=== PATIENT | male | born 1990 | race Caucasian/White ===

== ENCOUNTER 2016-10-20 00:03 | Emergency (ER) | payer SELFPAY ==
[~2016-10-20] VITALS: Ht 185.4 cm; Wt 90.0 kg
[2016-10-20 00:07] VITALS: Ht 185.4 cm; Wt 90.0 kg
[2016-10-20] MEDS ORDERED: IBUPROFEN 800 MG TAB PO ONE (03:00)
[2016-10-20] MEDS ORDERED: DIAZEPAM 2 MG TAB PO ONE (03:00)
[2016-10-20] MEDS ORDERED: CYCL-319 PO (03:26)
[2016-10-20] MEDS ORDERED: IBUP800T25 PO (03:26)
[2016-10-20 03:40] VITALS: BP 131/70; PULSE 67; RESP 16; TEMP 98
--- NOTE | 2016-10-20 05:49 | ERD ---
ER Documentation Chief Complaint Date/Time DATE: 10/20/16 TIME: 05:43 Chief Complaint non radiating neck pain tonight while doing exercising today HPI 26-year-old male complaining of neck pain 1 day. Patient stated that he woke up at 2 AM the previous morning with the neck pain. Pain is constant, and sharp. He is unable to move his neck because the pain. He smoked large amount of marijuana trying to ease the pain, he did pass out after marijuana. But when he woke up the pain returned. Denies injuries. Denies fever or chills. Denies headaches. ROS All systems reviewed and are negative except as per history of present illness. Medications Home Meds Active Scripts Cyclobenzaprine Hcl* (Cyclobenzaprine Hcl*) 10 Mg Tablet, 10 MG PO TID, #15 TAB Prov:HAYLEY LAND. TIGHTENING MACHINE OPERATOR 10/20/16 Ibuprofen* (Motrin*) 800 Mg Tab, 800 MG PO Q8, #30 TAB Prov:HAYLEY LAND. TIGHTENING MACHINE OPERATOR 10/20/16 Allergies Allergies: Coded Allergies: No Known Allergy (Unverified , 10/20/16) PMhx/Soc Medical and Surgical Hx: pt denies Medical Hx, pt denies Surgical Hx Hx Alcohol Use: No Hx Substance Use: No Hx Tobacco Use: No Smoking Status: Unknown if ever smoked Physical Exam Vitals Vital Signs Date Time Temp Pulse Resp B/P Pulse Ox O2 Delivery O2 Flow Rate FiO2 10/20/16 03:40 98.0 67 16 131/70 99 Room Air 10/20/16 00:07 98.2 78 18 115/55 98 Physical Exam General impression: Well-developed, well-nourished, 26-year-old male, alert, oriented, appears uncomfortable because of pain Head: Normocephalic, atraumatic. Eyes: PERRL, EOM normal. Conjunctiva not injected. Neck: Bilateral sternocleidomastoid spasm noted, tender to palpation. Respiration: Normal respiratory effort. Lungs clear to auscultate bilaterally. No wheezes, rales or rhonchi. Cardiovascular: Regular rate and rhythm. No murmurs or extra heart sounds. Neuro: Mental status normal, speech normal. Skin: Normal turgor. No rash or lesions. Psych: Normal mood and affect. Results 24 hrs Current Medications Medications (Trade) Dose Ordered Sig/Cirilo Route PRN Reason Start Time Stop Time Status Last Admin Dose Admin Ibuprofen (Motrin) 800 mg ONCE ONCE PO 10/20/16 03:00 10/20/16 03:01 DC 10/20/16 03:02 Diazepam (Valium) 2 mg ONCE ONCE PO 10/20/16 03:00 10/20/16 03:01 DC 10/20/16 03:02 Procedures/MDM Well-appearing 26-year-old male presented to ED with acute torticollis, likely secondary to poor sleep position. He does not have C-spine tenderness. Low suspicion for spinal fracture, subluxation, disc herniation, or spinal epidural abscess. Soft c-collar is applied for the patient. Patient is also given ibuprofen and Valium in the ED. Patient is advised to apply heat or ice at home to help ease the pain. Patient appears well, stable for discharge and outpatient management. Medical decision making shared with patient and family. Education provided to patient and family. Patient and family expressed understanding of the plan. Medications on discharge: Ibuprofen, Flexeril. Follow-up: Primary care provider in 2-3 days or return to ED if worse. Departure Diagnosis: Primary Impression: Torticollis Condition: Stable Patient Instructions: Torticollis (Wry Neck) Referrals: [facility] YOU HAVE RECEIVED A MEDICAL SCREENING EXAM AND THE RESULTS INDICATE THAT YOU DO NOT HAVE A CONDITION THAT REQUIRES URGENT TREATMENT IN THE EMERGENCY DEPARTMENT. FURTHER EVALUATION AND TREATMENT OF YOUR CONDITION CAN WAIT UNTIL YOU ARE SEEN IN YOUR DOCTORS OFFICE WITHIN THE NEXT 1-2 DAYS. IT IS YOUR RESPONSIBILITY TO MAKE AN APPOINTMENT FOR FOLOW-UP CARE. IF YOU HAVE A PRIMARY DOCTOR --you should call your primary doctor and schedule an appointment IF YOU DO NOT HAVE A PRIMARY DOCTOR YOU CAN CALL OUR PHYSICIAN REFERRAL HOTLINE AT IF YOU CAN NOT AFFORD TO SEE A PHYSICIAN YOU CAN CHOSE FROM THE FOLLOWING [facility] [address] [facility] [address] [facility] [facility] [address] [facility] [address] [facility] [address] [facility]. [facility] [address] Additional Instructions: Call your primary care doctor TOMORROW for an appointment during the next 2-3 days.See the doctor sooner or return here if your condition worsens before your appointment time. HAYLEY LAND NP Oct 20, 2016 05:49
== END 2016-10-20 03:41 | disposition home or self-care (01) ==
LOC: FTE 00:03
DX: M43.6 Torticollis (principal)
CPT/HCPCS: 99283